=== PATIENT | male | born 1995 | race American Indian/Alaskan Native ===

== ENCOUNTER 2018-07-23 08:14 | Observation (INO) | payer BC, OTHER ==
--- NOTE | 2018-07-23 09:10 | ED PDOC ---
Arrival/HPI - General Historian: Patient, Parent - History of Present Illness Narrative History of Present Illness (Text): 07/23/18 08:58 Pt is a 23 yo M with pmhx of asthma who presents for witnessed seizure. The family is present to help with history as pt is still post-ictal. Father states that this morning at around 7:30 AM he noticed his some strange banging noise coming from his sons room. He went in to investigate and saw that his son was having a tonic/clonic seizure, with his eyes rolling back in his head, and foaming at the mouth. He states that the whole episode lasted about 2 minutes in which time his called EMS to bring his son to the hospital. He denies noticing his son losing bladder or bowel incontinence, and he did not notice any blood coming from the pts mouth. They state that this is the first time they have ever noticed something like this happen. Pt denies any inciting event leading to the seizure like flashing lights, and states that he only remembers going to bed and now he is in the ED. His mother states that he may have had a similar episode a few weeks ago, when he woke up on the floor and complained of a headache, but no one was there to witness it. He denies feeling fevers, chills, chest pain, SOB, cough, nausea, vomiting, dysuria or frequency, numbness or tingling. He does admit to headache, weakness, and confusion. Pmhx: Asthma, seasonal allergies Pshx: Denies Meds: Denies All: [place] dye and PCNs - Nasal swelling and hives Social: Smokes only marijuana 4 times a week, denies etoh or illicit drug use Fam Hx: No hx of seizure disorder, Grandfather - Prostate ca and HTN, Grand mother - breast ca, 07/23/18 09:11 <Sujatha Avelar - Last Filed: 07/23/18 12:22> <Micky Dalton - Last Filed: 07/23/18 12:24> - General Chief Complaint: Seizure Time Seen by Provider: 07/23/18 08:17 Past Medical History - Cardiac Hx Cardiac Disorders: No - Pulmonary Hx Asthma: Yes - Neurological Hx Neurological Disorder: No - HEENT Hx HEENT Disorder: No - Renal Hx Renal Disorder: No - Endocrine/Metabolic Hx Endocrine Disorders: No - Hematological/Oncological Hx Blood Disorders: No - Integumentary Hx Dermatological Disorder: No - Musculoskeletal/Rheumatological Hx Musculoskeletal Disorders: No - Gastrointestinal Hx Gastrointestinal Disorders: No - Genitourinary/Gynecological Hx Genitourinary Disorders: No - Psychiatric Hx Psychophysiologic Disorder: No Hx Substance Use: Yes (Marijuana) <Sujatha Avelar - Last Filed: 07/23/18 12:22> Family/Social History Family/Social History: Diabetes, Hypertension, Neoplasm/Cancer Smoking Status: Never Smoked Hx Alcohol Use: No Hx Substance Use: Yes (Marijuana) <Sujatha Avelar - Last Filed: 07/23/18 12:22> Allergies/Home Meds <Sujatha Avelar - Last Filed: 07/23/18 12:22> <Micky Dalton - Last Filed: 07/23/18 12:24> Allergies/Adverse Reactions: Allergies amoxicillin Allergy (Verified 07/23/18 08:20) REDNESS orange (food color) Allergy (Verified 07/23/18 08:20) URTICARIA Home Medications: Home Meds Medication Instructions Recorded Confirmed Albuterol Sulfate [Proventil Hfa] 2 puff NEB Q4 PRN 07/23/18 07/23/18 Review of Systems - Physician Review All systems were reviewed & negative as marked: Yes - Review of Systems Constitutional: absent: Fevers Respiratory: absent: SOB, Cough Cardiovascular: absent: Chest Pain, Palpitations, Edema <Sujatha Avelar - Last Filed: 07/23/18 12:22> Physical Exam Vital Signs Temp Pulse Resp BP Pulse Ox 07/23/18 08:15 98.6 F 81 18 119/73 99 Temperature: Afebrile Blood Pressure: Normal Pulse: Regular Respiratory Rate: Normal Appearance: Positive for: Non-Toxic, Comfortable Pain Distress: None Mental Status: Positive for: Confused - Systems Exam Head: Present: Atraumatic, Normocephalic Pupils: Present: PERRL Extroacular Muscles: Present: EOMI Respiratory/Chest: Present: Clear to Auscultation, Good Air Exchange. No: Respiratory Distress, Accessory Muscle Use, Decreased Breath Sounds Cardiovascular: Present: Regular Rate and Rhythm, Normal S1, S2. No: Murmurs, Rub, Gallop Abdomen: Present: Normal Bowel Sounds. No: Tenderness, Distention, Peritoneal Signs, Rebound, Guarding Lower Extremity: Present: Normal Inspection. No: Edema, CALF TENDERNESS, Shilpi's Sign Neurological: Present: CN II-XII Intact, Speech Normal, Motor Func Grossly Intact, Normal Sensory Function, Normal Cerebellar Funct Skin: Present: Warm, Dry, Normal Color. No: Rashes Psychiatric: Present: Alert. No: Normal Insight (post ictal), Normal Concentration <ValentinoSujatha - Last Filed: 07/23/18 12:22> Vital Signs Temp Pulse Resp BP Pulse Ox 07/23/18 08:15 98.6 F 81 18 119/73 99 <Micky Dalton - Last Filed: 07/23/18 12:24> Medical Decision Making ED Course and Treatment: 07/23/18 09:14 Pt is a 23 yo M with pmhx of asthma who comes in for witnessed tonic/clonic seizure. - CBC - CMP - Mag - Phos - USD - EtOH - CT head - EKG - RAD Interpretation Radiology Orders: 07/23/18 08:51 HEAD W/O CONTRAST [CT] Stat <Monika Avelarmad - Last Filed: 07/23/18 12:22> ED Course and Treatment: 07/23/18 09:17 Seen and examined with the resident. Our history and physical exam reveals a young man with a new onset generalized tonic-clonic seizure witnessed by his father. No bowel or bladder incontinence. May have had a similar episode several weeks ago which was unwitnessed. He was postictal upon arrival in the emergency department. He is currently awake alert oriented cooperative and in no distress. He has a mild headache. His neurological examination is within normal limits. PROCEDURE: CT HEAD WITHOUT CONTRAST. Dictator : Castillo Saleh MD Report Date : 07/23/2018 10:23:43 IMPRESSION: Normal CT of the Head. 07/23/18 11:22 EKG shows sinus bradycardia rate approximately 55 with elevated J point throughout and a sinus arrhythmia with no acute ST or T-wave changes 07/23/18 11:56 Case discussed in detail with Dr. Tompkins who requests the patient be admitted. 07/23/18 12:08 Discussed case in detail with Dr. Mittal who accepts the patient to his service. - RAD Interpretation Radiology Orders: 07/23/18 08:51 HEAD W/O CONTRAST [CT] Stat CT scan of the head as read by the radiologist shows no acute findings. Customer Contact Sales Associate: Radiologist <Micky Dalton - Last Filed: 07/23/18 12:24> Disposition/Present on Arrival - Present on Arrival Any Indicators Present on Arrival: No History of DVT/PE: No History of Uncontrolled Diabetes: No Urinary Catheter: No History of Decub. Ulcer: No History Surgical Site Infection Following: None - Disposition Have Diagnosis and Disposition been Completed?: Yes Disposition Time: 12:10 <Sujatha Avelar - Last Filed: 07/23/18 12:22> - Present on Arrival Any Indicators Present on Arrival: No History of DVT/PE: No History of Uncontrolled Diabetes: No Urinary Catheter: No History of Decub. Ulcer: No - Disposition Have Diagnosis and Disposition been Completed?: Yes Patient Plan: Observation <Micky Dalton - Last Filed: 07/23/18 12:24> - Disposition Diagnosis: Seizure Disposition: HOSPITALIZED Patient Problems: Current Active Problems Problem Status Onset Seizure Acute Condition: GOOD
[2018-07-23 09:19] LABS: BASO # 0.02 K/mm3 (0.0-2.0); BASO % 0.2 % (0.0-3.0); EOS # 0.2 (0.0-0.7); EOS % 2.2 % (1.5-5.0); GRAN # 6.36 (1.4-6.5); GRAN % 73.3 % (50.0-68.0); HEMOGLOBIN 13.7 g/dL (14.0-18.0); LYMPH # 1.5 (1.2-3.4); LYMPH % 16.9 % (22.0-35.0); MEAN CELL VOLUME 82.6 fl (80.0-105.0); MEAN CORPUSCULAR HEMOGLOBIN 27.8 pg (25.0-35.0); MEAN CORPUSCULAR HGB CONC 33.7 g/dl (31.0-37.0); MEAN PLATELET VOLUME 11.9 fl (7.0-11.0); MONO # 0.6 (0.1-0.6); MONO % 7.4 % (1.0-6.0); RBC 4.93 10^6/uL (3.5-6.1); RED CELL DISTRIBUTION WIDTH 12.9 % (11.5-14.5); WHITE BLOOD COUNT 8.7 10^3/ul (4.5-11.0)
[2018-07-23 09:30] LABS: ALB/GLOB RATIO 1.5 (1.1-1.8); ALBUMIN 4.3 g/dL (3.0-4.8); ALT/SGPT 17 U/L (7-56); AST/SGOT 25 U/L (17-59); BLOOD UREA NITROGEN 10 mg/dL (7-21); CALCIUM 9.3 mg/dL (8.4-10.5); GFR NON-AFRICAN AMERICAN > 60
--- NOTE | 2018-07-23 10:25 | CT ---
Date of service: 07/23/2018 PROCEDURE: CT HEAD WITHOUT CONTRAST. HISTORY: Seizure COMPARISON: None available. TECHNIQUE: Axial computed tomography images were obtained through the head/brain without intravenous contrast. Supplemental Coronal and Sagittal projectections created and reviewed. Radiation dose: Total exam DLP = 844.19 mGy-cm. This CT exam was performed using one or more of the following dose reduction techniques: Automated exposure control, adjustment of the mA and/or kV according to patient size, and/or use of iterative reconstruction technique. FINDINGS: HEMORRHAGE: No intracranial hemorrhage. BRAIN: No mass effect or edema. No atrophy or chronic microvascular ischemic changes. VENTRICLES: Unremarkable. No hydrocephalus. CALVARIUM: Unremarkable. PARANASAL SINUSES: Unremarkable as visualized. No significant inflammatory changes. MASTOID AIR CELLS: Unremarkable as visualized. No inflammatory changes. OTHER FINDINGS: None. IMPRESSION: Normal CT of the Head.
[2018-07-23 10:58] LABS: BARBITURATES, UR NEGATIVE (NEGATIVE); BENZODIAZEPINES, UR NEGATIVE (NEGATIVE); OPIATES, UR NEGATIVE (NEGATIVE); PHENCYCLIDINE, UR NEGATIVE (NEGATIVE)
[2018-07-23 13:12] VITALS: TEMP 98.2
--- NOTE | 2018-07-23 14:42 | CP.PCM.CON ---
History of Present Illness - History of Present Illness History of Present Illness: 23 yr old male, who had one seizure one week ago,when he was sleeping in his apartment. Patient woke up with tongue bite, and headache (no history of migraine), and was sore. Last night, patient was sleeping in his parents house, and father heard a thud, after which he entered sons' room. had eye open, and was dazed with foaming from mouth and tongue bite. He his amnestic for event, and only remembers EMS as first recollection after sleeping last night. There is a history of a remote febrile seizure when he was 7 years old. 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 He denies headache, nausea, vomiting, diarrhea, or blurriness of vision. BH: FTND, no meningitis, no encephalitis, multiple concussions throughout lifetime as football player. PMH/PSH: no dm, no htn, no other history noted Fh/SH: smokes marijuana on a regular basis. 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 Recently he was trying to reduce his marijuana con sumption. All: amoxycillin ON exam: Normal neurological examination. no focal deficits. Imaging: Prior ct scans were done at [facility] and family will obtain results. Past Patient History - Past Social History Smoking Status: Never Smoked - CARDIAC Hx Cardiac Disorders: No - PULMONARY Hx Asthma: Yes - NEUROLOGICAL Hx Neurological Disorder: No - HEENT Hx HEENT Problems: No - RENAL Hx Chronic Kidney Disease: No - ENDOCRINE/METABOLIC Hx Endocrine Disorders: No - HEMATOLOGICAL/ONCOLOGICAL Hx Blood Disorders: No - INTEGUMENTARY Hx Dermatological Problems: No - MUSCULOSKELETAL/RHEUMATOLOGICAL Hx Musculoskeletal Disorders: No - GASTROINTESTINAL Hx Gastrointestinal Disorders: No - GENITOURINARY/GYNECOLOGICAL Hx Genitourinary Disorders: No - PSYCHIATRIC Hx Psychophysiologic Disorder: No Hx Substance Use: Yes (Marijuana) - SURGICAL HISTORY Hx Surgeries: No Meds Allergies/Adverse Reactions: Allergies Allergy/AdvReac Type Severity Reaction Status Date / Time amoxicillin Allergy REDNESS Verified 07/23/18 08:20 orange (food color) Allergy URTICARIA Verified 07/23/18 08:20 Results - Vital Signs Recent Vital Signs: Last Vital Signs Temp 98.2 F 07/23/18 13:11 Pulse 75 07/23/18 13:11 Resp 18 07/23/18 13:11 BP 108/73 07/23/18 13:11 Pulse Ox 97 07/23/18 13:11 - Labs Result Diagrams: 07/23/18 09:00 07/23/18 09:00 Labs: Laboratory Results - last 24 hr 07/23/18 07/23/18 07/23/18 09:00 09:00 09:00 WBC 8.7 RBC 4.93 Hgb 13.7 L Hct 40.7 L MCV 82.6 MCH 27.8 MCHC 33.7 RDW 12.9 Plt Count 165 MPV 11.9 H Gran % 73.3 H Lymph % (Auto) 16.9 L [place] % (Auto) 7.4 H Eos % (Auto) 2.2 Baso % (Auto) 0.2 Gran # 6.36 Lymph # (Auto) 1.5 [place] # (Auto) 0.6 Eos # (Auto) 0.2 Baso # (Auto) 0.02 Sodium 140 Potassium 3.8 Chloride 104 Carbon Dioxide 26 Anion Gap 15 BUN 10 Creatinine 1.3 Est GFR ( Amer) > 60 Est GFR (Non-Af Amer) > 60 Random Glucose 98 Calcium 9.3 Phosphorus 3.0 Magnesium 2.2 Total Bilirubin 0.8 AST 25 ALT 17 Alkaline Phosphatase 52 Total Protein 7.2 Albumin 4.3 Globulin 2.9 Albumin/Globulin Ratio 1.5 Urine Opiates Screen Urine Methadone Screen Ur Barbiturates Screen Ur Phencyclidine Scrn Ur Amphetamines Screen U Benzodiazepines Scrn U Oth Cocaine Metabols U Cannabinoids Screen Alcohol, Quantitative < 10 07/23/18 10:00 WBC RBC Hgb Hct MCV MCH MCHC RDW Plt Count MPV Gran % Lymph % (Auto) [place] % (Auto) Eos % (Auto) Baso % (Auto) Gran # Lymph # (Auto) [place] # (Auto) Eos # (Auto) Baso # (Auto) Sodium Potassium Chloride Carbon Dioxide Anion Gap BUN Creatinine Est GFR ( Amer) Est GFR (Non-Af Amer) Random Glucose Calcium Phosphorus Magnesium Total Bilirubin AST ALT Alkaline Phosphatase Total Protein Albumin Globulin Albumin/Globulin Ratio Urine Opiates Screen Negative Urine Methadone Screen Negative Ur Barbiturates Screen Negative Ur Phencyclidine Scrn Negative Ur Amphetamines Screen Negative U Benzodiazepines Scrn Negative U Oth Cocaine Metabols Negative U Cannabinoids Screen Positive H Alcohol, Quantitative Assessment & Plan - Assessment and Plan (Free Text) Assessment: CT head: normal. 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 Plan: 1. MRI Brain with and without contrast 2. Video eeg for 24 hours 3. continue keppra for now at 500 mg bid. Thank you for consulting neurology Dr. combs
[2018-07-23] MEDS ORDERED: Gadodiamide 287 MG/ML VIAL (15ML) IV ONE (14:46)
--- NOTE | 2018-07-23 17:13 | HP ---
HISTORY OF PRESENT ILLNESS: The patient is a 23-year-old man with no significant past medical history who presented s/p witnessed seizure. The patient was seen in his PMD's office approximately 1 month ago for evaluation of reported seizure activity. He was referred to a neurologist for continued evaluation however he was unable to make an appointment. He was doing well since that visit until the day of presentation to the ED when he was witnessed by his father to be "twitching" and foaming at the mouth. The seizure reportedly lasted 2 minutes and resolved spontaneously by the time arrival of EMS. The patient was subsequently brought to [facility] ED for further evaluation. Examination in the ED found him to be afebrile, hemodynamically stable and neurologically intact. Initial laboratory studies were unremarkable and a CT of the head was also normal. Dr. Tompkins, the neurologist electronic instrument trades worker, was notified and made recommendations for the patient to be admitted for continued neurological care. PAST MEDICAL HISTORY: Mild intermittent asthma. PAST SURGICAL HISTORY: None. ALLERGIES: Penicillin. MEDICATIONS: Ventolin HFA 2 puffs q. 4-6 hours as needed for dyspnea or wheeze. FAMILY HISTORY: No history of seizure disorder. SOCIAL HISTORY: The patient endorses occasional marijuana use but denies IV drug abuse. He further denies alcohol use or tobacco use. REVIEW OF SYSTEMS: A 12-point review of systems is negative except as per HPI. PHYSICAL EXAMINATION: VITAL SIGNS: Temperature 98.2, pulse 75, blood pressure 108/73, respiratory rate 18, oxygen saturation 97% on room air. GENERAL: No apparent distress. HEENT: Normocephalic, atraumatic. PERRL. EOMI. No scleral icterus. No conjunctival pallor. NECK: No JVD, no bruits. LUNGS: Clear to auscultation. CARDIOVASCULAR: Regular rate and rhythm. Normal S1, S2. No murmurs. ABDOMEN: Normoactive bowel sounds. Soft, nontender, nondistended. EXTREMITIES: No edema. NEUROLOGIC: Awake, alert, and oriented x 3. No focal motor deficits. Cranial nerves intact. No tremors. LABORATORY DATA: CBC reviewed and unremarkable. CMP reviewed and unremarkable. Urine toxicology positive for cannabinoids. IMAGING STUDIES: CT of the head without contrast demonstrated no acute pathology. ASSESSMENT: The patient is a 23-year-old man with a past medical history of mild intermittent asthma who presented s/p witnessed seizure and was admitted for neurological evaluation of new-onset seizure disorder. PLAN: 1. New-onset seizures. The patient is s/p loading with Keppra in the ED. Neurological evaluation with Dr. Tompkins is pending. Continue with frequent neuro checks and seizure precautions. 2. Mild intermittent asthma. We will start DuoNeb as needed. 3. Marijuana use disorder. The patient has been counseled on the adverse health effects of marijuana smoking. 4. Prophylaxis. GI prophylaxis not indicated as the patient is eating. DVT prophylaxis not indicated as the patient is ambulatory. CODE STATUS: Full code. Hugo Mittal MD MTDD
[2018-07-23 17:27] VITALS: BP 131/80; PULSE 72; O2SAT 100
--- NOTE | 2018-07-23 17:54 | MRI ---
Date of service: 07/23/2018 PROCEDURE: MRI BRAIN WITH AND WITHOUT CONTRAST HISTORY: Intracranial lesion. COMPARISON: Comparison made with prior CT scan brain 07/23/2018.. TECHNIQUE: Multiplanar, multisequence MR images of the brain were obtained with and without intravenous contrast enhancement. 15 cc Omniscan contrast material injected for this examination. Note that the study is limited by motion artifact. FINDINGS: HEMORRHAGE: None DWI: No evidence of an acute or early subacute infarction. BRAIN PARENCHYMA: No mass,mass effect or edema. No atrophy or chronic microvascular ischemic changes.. Ventricular and sulcal size within range of normal this patient's stated age ENHANCEMENT: No enhancing parenchymal nor extra-axial masses or collections. No evidence of unusual meningeal enhancement. VENTRICLES: No obstructive hydrocephalus. CRANIUM: Unremarkable. ORBITS: Orbits and contents grossly unremarkable. PARANASAL SINUSES/MASTOIDS: Minimal mucosal thickening seen within a few ethmoid air cells extending superiorly into the inferior margin of the left frontal sinus. Minimal mucosal thickening both maxillary antra and sphenoid sinus. VASCULAR SYSTEM: Visualized major vascular flow voids at skull base patent. OTHER FINDINGS: None . IMPRESSION: Limited motion degraded study. No acute intracranial abnormalities. No enhancing lesions seen. Mild minor mucosal thickening within all the paranasal sinuses as detailed above.
[2018-07-23 18:24] VITALS: RESP 18; BMI 28.7
[2018-07-23] MEDS ORDERED: Influenza Vaccine 60 mcg/0.5 mL SYR (4YR UP) IM ONE (18:24)
[2018-07-23] MEDS ORDERED: Pneumococcal 23-Valent Vaccine IM ONE (18:24)
[2018-07-24 07:21] LABS: BASO # 0.03 K/mm3 (0.0-2.0); BASO % 0.4 % (0.0-3.0); EOS # 0.2 (0.0-0.7); EOS % 2.7 % (1.5-5.0); GRAN # 4.58 (1.4-6.5); GRAN % 62.9 % (50.0-68.0); HEMOGLOBIN 13.8 g/dL (14.0-18.0); LYMPH # 1.8 (1.2-3.4); LYMPH % 24.8 % (22.0-35.0); MEAN CELL VOLUME 82.3 fl (80.0-105.0); MEAN CORPUSCULAR HEMOGLOBIN 27.4 pg (25.0-35.0); MEAN CORPUSCULAR HGB CONC 33.3 g/dl (31.0-37.0); MEAN PLATELET VOLUME 12.3 fl (7.0-11.0); MONO # 0.7 (0.1-0.6); MONO % 9.2 % (1.0-6.0); RBC 5.04 10^6/uL (3.5-6.1); RED CELL DISTRIBUTION WIDTH 12.9 % (11.5-14.5); WHITE BLOOD COUNT 7.3 10^3/ul (4.5-11.0)
[2018-07-24 07:28] LABS: ALB/GLOB RATIO 1.4 (1.1-1.8); ALBUMIN 4.1 g/dL (3.0-4.8); ALT/SGPT 22 U/L (7-56); AST/SGOT 20 U/L (17-59); BLOOD UREA NITROGEN 9 mg/dL (7-21); CALCIUM 9.4 mg/dL (8.4-10.5); GFR NON-AFRICAN AMERICAN > 60
--- NOTE | 2018-07-24 08:54 | CARD ---
APPROVED REPORT Date of service: 07/23/2018 EKG Measurement Heart [id number] <Conclusion> Sinus bradycardia with sinus arrhythmia
--- NOTE | 2018-07-24 20:18 | CP.PCM.PN ---
Subjective - Date & Time of Evaluation Date of Evaluation: 07/24/18 Time of Evaluation: 09:00 - Subjective Subjective: SUBJECTIVE: No acute events overnight. He remains afebrile, hemodynamically stable and with no further seizures. OBJECTIVE: VITAL SIGNS: Temperature 98.6, pulse 66, blood pressure 110/73, respiratory rate 18, oxygen saturation 97% on room air. GENERAL: No apparent distress. HEENT: Normocephalic, atraumatic. PERRL. EOMI. No scleral icterus. No conjunctival pallor. NECK: No JVD, no bruits. LUNGS: Clear to auscultation. CARDIOVASCULAR: Regular rate and rhythm. Normal S1, S2. No murmurs. ABDOMEN: Normoactive bowel sounds. Soft, nontender, nondistended. EXTREMITIES: No edema. NEUROLOGIC: Awake, alert, and oriented x 3. No focal motor deficits. Cranial nerves intact. No tremors. LABORATORY DATA: Labs reviewed and largely unremarkable. IMAGING STUDIES: MRI brain reviewed and demonstrated no acute pathology. ASSESSMENT: The patient is a 23-year-old man with a past medical history of mild intermi ttent asthma who presented s/p witnessed seizure and was admitted for neurological evaluation of new-onset seizure disorder. PLAN: 1. New-onset seizures. The patient is s/p loading with Keppra in the ED. Input from Dr. Tompkins appreciated. Video EEG pending. Continue seizure precautions. 2. Mild intermittent asthma. 3. Marijuana use disorder. 4. Prophylaxis. GI prophylaxis not indicated as the patient is eating. DVT prophylaxis not indicated as the patient is ambulatory. CODE STATUS: Full code. Objective - Vital Signs/Intake and Output Vital Signs (last 24 hours): Temp Pulse Resp BP Pulse Ox 98.2 F 72 18 131/80 100 07/23/18 17:55 07/23/18 17:55 07/23/18 17:55 07/23/18 17:55 07/23/18 17:26 - Labs Labs: 07/24/18 06:30 07/24/18 06:30
--- NOTE | 2018-07-24 20:59 | PN ---
DATE: 07/24/2018 SUBJECTIVE: Patient is comfortable, tolerating Keppra well, tolerated overnight video EEG well. No seizures noted. PHYSICAL EXAMINATION: NEUROLOGIC: Alert, awake, oriented x3. Cranial nerve II through XII normal. PERRL, EOMI. Motor strength 5/5. Sensory intact to fine touch, pin. Cerebellar. [id number] shows no dysmetria. Gait is normal. 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 There is no abnormal enhancement. There is no stroke noted. VIDEO EEG: Shows a normal awake and sleep 24 hour EEG. Please see the EEG report in the report section for further clarification. There are no clinical except clinical seizures. Labs are within normal limits. ASSESSMENT AND PLAN: This is a 23-year-old male who had several seizures, which I believe are primary generalized epilepsy. We voted him with Keppra yesterday. I feel that this medication treated the hospital abnormal discharges. Video EEG is normal; however, I feel that is because we have tried one Keppra before obtaining the sedatives. I have discussed with the family that he should continue on Keppra 1000 mg XR daily. I will see him back in clinic in 2 months in [place], [address] [place] [address]. In the meantime, he may contact with some questions, or seizure precautions and possible side effects of medications were discussed with the patient including the fact that he should not drive for one week. Mary Lou Tompkins MD
--- NOTE | 2018-07-26 08:19 | DS ---
ADMISSION DIAGNOSIS: New onset seizures. DISCHARGE DIAGNOSIS: New onset seizures. SECONDARY DIAGNOSES: Mild intermittent asthma and marijuana use disorder. CONSULTATIONS: Dr. Tompkins (Neurology). PROCEDURES: None. IMAGING STUDIES: 1. CT of the head without contrast demonstrated no acute pathology. 2. MRI of the brain with and without contrast demonstrated no acute pathology. HISTORY OF PRESENT ILLNESS: The patient is a 23-year-old man with no significant past medical history who presented s/p witnessed seizure. The patient was seen in his PMD's office approximately 1 month ago for evaluation of reported seizure activity. He was referred to a neurologist for continued evaluation but was unable to make an appointment. He was doing well since that visit until the day of presentation to the ED when he was witnessed by his father to be "twitching" and foaming at the mouth. The seizure reportedly lasted 2 minutes and resolved spontaneously by the time of arrival of EMS. He was subsequently brought to [facility] ED for further evaluation. Examination in the ED found him to be afebrile, hemodynamically stable and neurologically intact. Initial laboratory studies were unremarkable and a CT of the head was also normal. Dr. Tompkins, the neurologist blocker and cutter contact lens, was notified and made recommendations for the patient to be admitted for continued neurological care. HOSPITAL COURSE: Upon admission to the general medical sloan the patient was promptly evaluated by Dr. Tompkins. An MRI of the brain was obtained which was unremarkable and after evaluation with Dr. Tompkins, the patient was started on Keppra 500 mg p.o. b.i.d. and subsequently cleared for discharge to home. CONDITION: Good, improved. DISPOSITION: Home. DISCHARGE MEDICATIONS: Ventolin HFA 2 puffs q. 4-6 hours p.r.n. dyspnea/wheeze and Keppra 500 mg p.o. b.i.d. DISCHARGE INSTRUCTIONS: The patient was advised that if he has any recurrence of the symptoms to present to his PMD or to the nearest ED immediately. FOLLOWUP: The patient to follow up with his PMD within 1 week of discharge. The patient to follow up with Dr. Tompkins as scheduled. Hugo Mittal MD [facility] # [id number] MTDGabriela
== END 2018-07-24 12:58 | disposition home or self-care (01) ==
LOC: ED 08:14 → ERH 12:07 → 3RSO 15:53
PROVIDERS: ADMIT Student in an Organized Health Care Education/Training Program; ATTEND Student in an Organized Health Care Education/Training Program
DX: G40.409 Other generalized epilepsy and epileptic syndromes, not intractable, without status epilepticus (principal); J45.20 Mild intermittent asthma, uncomplicated; F12.90 Cannabis use, unspecified, uncomplicated
CPT/HCPCS: 36415; 70450; 70553; 80053; 83735; 84100; 85025; 93005; 99285; A9579; G0378; G0480

== ENCOUNTER 2018-12-06 10:33 | Emergency (ER) | payer BC ==
[2018-12-06 10:33] VITALS: BMI 28.7
[2018-12-06 10:46] VITALS: RESP 18
[2018-12-06] MEDS ORDERED: Phenytoin 100 mg/2 ml Inj IVP STA (11:09)
[2018-12-06 11:31] LABS: BASO # 0.02 K/mm3 (0.0-2.0); BASO % 0.3 % (0.0-3.0); EOS # 0.2 (0.0-0.7); EOS % 2.3 % (1.5-5.0); HEMOGLOBIN 14.1 g/dL (14.0-18.0); LYMPH # 1.5 (1.2-3.4); LYMPH % 21.1 % (22.0-35.0); MEAN CELL VOLUME 83.4 fl (80.0-105.0); MEAN CORPUSCULAR HEMOGLOBIN 27.8 pg (25.0-35.0); MEAN CORPUSCULAR HGB CONC 33.3 g/dl (31.0-37.0); MONO # 0.6 (0.1-0.6); RBC 5.07 10^6/uL (3.5-6.1); RED CELL DISTRIBUTION WIDTH 12.8 % (11.5-14.5); WHITE BLOOD COUNT 7.1 10^3/uL (4.5-11.0)
--- NOTE | 2018-12-06 12:08 | CT ---
Date of service: 12/06/2018 PROCEDURE: CT HEAD WITHOUT CONTRAST. HISTORY: seizure COMPARISON: 07/23/2018 TECHNIQUE: Axial computed tomography images were obtained through the head/brain without intravenous contrast. Radiation dose: Total exam DLP = 842.66 mGy-cm. This CT exam was performed using one or more of the following dose reduction techniques: Automated exposure control, adjustment of the mA and/or kV according to patient size, and/or use of iterative reconstruction technique. FINDINGS: HEMORRHAGE: No intracranial hemorrhage. BRAIN: No mass effect or edema. No atrophy or chronic microvascular ischemic changes. VENTRICLES: Unremarkable. No hydrocephalus. CALVARIUM: Unremarkable. PARANASAL SINUSES: Unremarkable as visualized. No significant inflammatory changes. MASTOID AIR CELLS: Unremarkable as visualized. No inflammatory changes. OTHER FINDINGS: None. IMPRESSION: No acute intracranial abnormalities
--- NOTE | 2018-12-06 13:05 | ED PDOC ---
Arrival/HPI - General Chief Complaint: Seizure Time Seen by Provider: 12/06/18 10:40 Historian: Patient - History of Present Illness Narrative History of Present Illness (Text): 12/06/18 13:02 23yo male with pmhx of Asthma and seizure present with the father for complaint of unwitnessed seizure this morning. Father states patient came downstairs this morning complaining of sharp headache and bleeding from his mouth. states he noticed that the bleeding was coming from a cut on his tongue, when he checked and realized that he had seizure. father states he had similar symptoms the last time he had seizure. Notes that he was officially diagnosed last year June and was placed on Keppra 1000mg daily. Patient states he stopped taking the medication because it was causing him to have decreased appetite. Father notes that sine patient was discharged from [place] last year June, he have not had any seizure and have not followed up with a Neurologist. He denies urinary/fecal incontinence, focal weakness, nausea, vomiting, fever, chills, neck pain, abdominal pain, dizziness, any other complaint. Past Medical History - Provider Review Nursing Documentation Reviewed: Yes - Cardiac Hx Cardiac Disorders: No - Pulmonary Hx Respiratory Disorders: Yes Hx Asthma: Yes - Neurological Hx Neurological Disorder: Yes Hx Seizures: Yes Other/Comment: SEIZURE WHEN HE WAS 7 YRS OLD DUE TO HIGH FEVER. - HEENT Hx HEENT Disorder: No - Renal Hx Renal Disorder: No - Endocrine/Metabolic Hx Endocrine Disorders: No - Hematological/Oncological Hx Blood Disorders: No - Integumentary Hx Dermatological Disorder: No - Musculoskeletal/Rheumatological Hx Musculoskeletal Disorders: Yes (LEFT HAND AND WRIST FX PER PT-PLAYING FOOTBALL.H/O MULTIPLE TRAUMA) Hx Falls: Yes (07-23-18) - Gastrointestinal Hx Gastrointestinal Disorders: No - Genitourinary/Gynecological Hx Genitourinary Disorders: No - Psychiatric Hx Psychophysiologic Disorder: No Hx Substance Use: Yes (MARIJUANA 3 X A WEEK SMOKED) Family/Social History - Physician Review Nursing Documentation Reviewed: Yes Family/Social History: Unknown Family HX Smoking Status: Current Some Days Smoker Hx Alcohol Use: No Hx Substance Use: Yes (MARIJUANA 3 X A WEEK SMOKED) Allergies/Home Meds Allergies/Adverse Reactions: Allergies amoxicillin Allergy (Verified 12/06/18 10:46) REDNESS orange (food color) Allergy (Verified 12/06/18 10:46) URTICARIA Home Medications: Home Meds Medication Instructions Recorded Confirmed Albuterol Sulfate [Proventil Hfa] 2 puff NEB Q4 PRN 07/23/18 12/06/18 Review of Systems - Physician Review All systems were reviewed & negative as marked: Yes - Review of Systems Constitutional: Normal Eyes: Normal ENT: Normal Respiratory: Normal Cardiovascular: Normal Gastrointestinal: Normal Genitourinary Male: Normal Musculoskeletal: Normal Skin: Normal Neurological: Seizure Endocrine: Normal Hemo/Lymphatic: Normal Psychiatric: Normal Physical Exam Vital Signs Reviewed: Yes Vital Signs Temp Pulse Resp BP Pulse Ox 12/06/18 10:43 97.7 F 61 18 130/74 99 Temperature: Afebrile Blood Pressure: Normal Pulse: Regular Respiratory Rate: Normal Appearance: Positive for: Well-Appearing, Non-Toxic, Comfortable Pain Distress: None Mental Status: Positive for: Alert and Oriented X 3 - Systems Exam Head: Present: Atraumatic, Normocephalic Pupils: Present: PERRL Extroacular Muscles: Present: EOMI Conjunctiva: Present: Normal Mouth: Present: Moist Mucous Membranes. No: Normal Lips (abrasion noted on left sided tongue tip) Neck: Present: Normal Range of Motion Respiratory/Chest: Present: Clear to Auscultation, Good Air Exchange. No: Respiratory Distress, Accessory Muscle Use Cardiovascular: Present: Regular Rate and Rhythm, Normal S1, S2. No: Murmurs Abdomen: No: Tenderness, Distention, Peritoneal Signs Back: Present: Normal Inspection Upper Extremity: Present: Normal Inspection. No: Cyanosis, Edema Lower Extremity: Present: Normal Inspection. No: Edema Neurological: Present: GCS=15, CN II-XII Intact, Speech Normal, Motor Func Grossly Intact, Normal Sensory Function, Normal Cerebellar Funct, Gait Normal, Memory Normal, Other (No focal neurological deficit) Skin: Present: Warm, Dry, Normal Color. No: Rashes Psychiatric: Present: Alert, Oriented x 3, Normal Insight, Normal Concentration Medical Decision Making ED Course and Treatment: 12/06/18 17:16 23yo male bib the father for seizure this afternoon Pt was AAO x3 in ED and neurologically intact Labs EKG Head CT 1gram of Dilantin EKG NSR @ 64bpm Labs was unremarkable Head CT - Negative Pt not noncompliance of his Keppra. Case was DW Dr. Mota who recommends pt to be DC home with Trileptall 150mg BID and f/u with his office. all result and plan was DW the pt and the father and they agreed. He was advised to take his medication. He verbalized understanding of the given instruction. - RAD Interpretation Radiology Orders: 12/06/18 11:09 HEAD W/O CONTRAST [CT] Stat - Medication Orders Current Medication Orders: Discontinued Medications Phenytoin 1,000 mg/ Sodium (Chloride) 250 mls @ 300 mls/hr IVPB STAT STA Stop: 12/06/18 12:02 Last Admin: 12/06/18 11:40 Dose: 300 mls/hr eMAR Start Stop Document 12/06/18 11:40 EWO (Rec: 12/06/18 11:40 EWO [id number] Intravenous Solution Start Date 12/06/18 Start Time 11:40 End Date 12/06/18 End time 12:30 Total Infusion Time 50 Disposition/Present on Arrival - Present on Arrival Any Indicators Present on Arrival: No History of DVT/PE: No History of Uncontrolled Diabetes: No Urinary Catheter: No History of Decub. Ulcer: No History Surgical Site Infection Following: None - Disposition Have Diagnosis and Disposition been Completed?: Yes Diagnosis: Seizure Disposition: HOME/ ROUTINE Disposition Time: 14:45 Patient Plan: Discharge Condition: STABLE Discharge Instructions (ExitCare): Seizures, Adult (DC) Additional Instructions: Follow up with Dr. Sanchez Return to ED for any new or worsening symptoms Prescriptions: Oxcarbazepine [Trileptal] 150 mg PO BID #30 tablet Referrals: Orlando Amaya MD [Staff Provider] - Follow up with primary Forms: [employer] ([place])
[2018-12-06 13:31] LABS: ALB/GLOB RATIO 1.5 (1.1-1.8); ALBUMIN 4.5 g/dL (3.0-4.8); ALT/SGPT 16 U/L (7-56); AST/SGOT 29 U/L (17-59); BLOOD UREA NITROGEN 13 mg/dL (7-21); CALCIUM 9.1 mg/dL (8.4-10.5); GFR NON-AFRICAN AMERICAN > 60
[2018-12-06 14:15] VITALS: TEMP 98.3; O2SAT 98
[2018-12-06 14:16] VITALS: BP 108/75; PULSE 63
[2018-12-06 14:24] LABS: URINE APPEARANCE CLEAR (CLEAR); URINE BILIRUBIN NEGATIVE (NEGATIVE); URINE BLOOD NEGATIVE (NEGATIVE); URINE COLOR YELLOW (YELLOW); URINE GLUCOSE (UA) NEGATIVE (NEGATIVE); URINE LEUKOCYTE ESTERASE NEGATIVE Leu/uL (NEGATIVE); URINE PROTEIN TRACE mg/dL (<30 mg/dL); URINE UROBILINOGEN 0.2 E.U./dL (<1 E.U./dL)
[2018-12-06 14:29] LABS: URINE BACTERIA FEW /hpf; URINE RBC 0 - 2 /hpf (0-2)
[2018-12-06 14:30] LABS: URINE COARSE GRANULAR CAST TRACE /hpf
[2018-12-06 14:43] LABS: BARBITURATES, UR NEGATIVE (NEGATIVE); BENZODIAZEPINES, UR NEGATIVE (NEGATIVE); OPIATES, UR NEGATIVE (NEGATIVE); PHENCYCLIDINE, UR NEGATIVE (NEGATIVE)
--- NOTE | 2018-12-07 09:39 | CARD ---
APPROVED REPORT Date of service: 12/06/2018 EKG Measurement Heart [id number] <Conclusion> Normal sinus rhythm Normal ECG
== END 2018-12-06 14:53 | disposition home or self-care (01) ==
LOC: ED 10:33
DX: R56.9 Unspecified convulsions (principal)
CPT/HCPCS: 70450; 80053; 81001; 83735; 85025; 93005; 96365; 99285; G0480; J1165